=== PATIENT | female | born 1960 | race Caucasian/White ===

== ENCOUNTER → 2016-08-11 | Outpatient (CLI) | payer OTHER ==
[~2016-08-11] MED LIST: CHOL100027 PO; CHOL2000 PO; CONJ.6255 PO; FEXO1TAB46 PO; ONDA4TAB10 SL; TUMERIC CURCUMIN PO; TURM1CAP4 PO
[2016-08-11 09:45] LABS: BASO % 0.3 %; BASO ABS # 0.02 K/uL (0-0.2); COMPLETE YES; HEMATOCRIT 43.6 % (37-47); IG% 0.3 %; LYMPH % 32.2 %; LYMPH ABS # 2.55 K/uL (1.2-3.4); MEAN CELL VOLUME 92.2 fL (80-100); MEAN CORPUSCULAR HEMOGLOBIN 31.1 pg (25-34); MEAN CORPUSCULAR HGB CONC 33.7 g/dl (32-36); MONO % 10.5 %; NEUT % 51.7 %; PLATELET COUNT 279 K/uL (130-400); RED BLOOD COUNT 4.73 M/uL (4.2-5.4); WHITE BLOOD COUNT 7.93 K/uL (4.8-10.8)
[2016-08-11 10:05] LABS: BLOOD UREA NITROGEN 15 mg/dl (7-18); BUN/CREATININE RATIO 17.4 (10-20); CALCIUM 8.8 mg/dl (8.5-10.1); CARBON DIOXIDE 24 mmol/L (21-32); CHLORIDE 107 mmol/L (98-107); CHOLESTEROL 223 mg/dl (0-200); CREATININE 0.89 mg/dl (0.60-1.20); GLUCOSE 95 mg/dl (70-99); POTASSIUM 4.1 mmol/L (3.5-5.1); SODIUM 141 mmol/L (136-145)
[2016-08-11 10:16] LABS: ALB/GLOB RATIO 1.3 (0.9-2); ALKALINE PHOSPHATASE 64 U/L (45-117); ALT/SGPT 21 U/L (12-78); AST/SGOT 13 U/L (15-37); CHOLESTEROL/HDL RATIO 3.5; HDL CHOLESTEROL 64 mg/dl; LDL CHOLESTEROL CALCULATED 133 mg/dl; TRIGLYCERIDES 130 mg/dl (0-150); VERY LOW DENSITY LIPOPROT CALC 26 mg/dl
== END | disposition home or self-care (01) ==
LOC: C.LAB1850 07:38
PROVIDERS: ATTEND Internal Medicine
DX: E53.8 Deficiency of other specified B group vitamins (principal); E55.9 Vitamin D deficiency, unspecified; E78.5 Hyperlipidemia, unspecified; E87.6 Hypokalemia; M19.90 Unspecified osteoarthritis, unspecified site; M85.80 Other specified disorders of bone density and structure, unspecified site

== ENCOUNTER → 2016-09-14 | Outpatient (CLI) | payer OTHER | END | disposition home or self-care (01) | LOC: C.MAMM 11:29 | PROVIDERS: ATTEND Internal Medicine | DX: M85.80 Other specified disorders of bone density and structure, unspecified site (principal) ==

== ENCOUNTER → 2016-09-29 | Outpatient (CLI) | payer OTHER ==
--- NOTE | 2016-09-29 13:32 | MAMMOGRAPHY REPORT ---
BILATERAL DIGITAL SCREENING MAMMOGRAM WITH CAD: 09/29/2016 CLINICAL HISTORY: Routine screening. Patient has no complaints. TECHNIQUE: Current study was also evaluated with a Computer Aided Detection (CAD) system. Bilatera l CC and MLO views were obtained. COMPARISON: Comparison is made to exams dated: 09/17/2015 mammogram, 08/21/2014 mammogram, 12/11/2012 m ammogram, 12/05/2012 mammogram, and 11/02/2009 mammogram - [facility]. BREAST COMPOSITION: The tissue of both breasts is almost entirely fatty. FINDINGS: No suspicious masses, calcifications, or areas of architectural distortion are noted in e ither breast. There has been no significant interval change compared to prior exams. IMPRESSION: ACR BI-RADS CATEGORY 1: NEGATIVE There is no mammographic evidence of malignancy. A 1 year screening mammogram is recommended. The p atient will receive written notification of the results. Approximately 10% of breast cancers are not detected with mammography. A negative mammographic repor t should not delay biopsy if a clinically suggestive mass is present. Katelyn Titus M.D. ah/:09/29/2016 12:05:38 [employer] Supervisor: Nataliya Manzano [facility] letter sent: Normal 1/2 BI-RADS Code: ACR BI-RADS Category 1: Negative
== END | disposition home or self-care (01) ==
LOC: C.MAMM 10:56
PROVIDERS: ATTEND Obstetrics & Gynecology
DX: Z12.31 Encounter for screening mammogram for malignant neoplasm of breast (principal)

== ENCOUNTER → 2016-12-14 | Outpatient (CLI) | payer OTHER | END | disposition home or self-care (01) | LOC: C.PAPS 10:08 | PROVIDERS: ATTEND Physician Assistant | DX: Z12.4 Encounter for screening for malignant neoplasm of cervix (principal) ==

== ENCOUNTER 2017-03-07 20:47 | Emergency (ER) | payer SELFPAY ==
[~2017-03-07] VITALS: Ht 139.7 cm; Wt 46.2 kg
[~2017-03-07 20:47] MED LIST changes: -CHOL2000 PO; -ONDA4TAB10 SL; -TURM1CAP4 PO
[2017-03-07 20:52] VITALS: TEMP 37; Ht 139.7 cm; Wt 46.2 kg
[2017-03-07] MEDS ORDERED: SODIUM CHLORIDE 0.9% 1000ML 1,000 ML IV STA (21:58)
[2017-03-07] MEDS ORDERED: ONDANSETRON INJ 2 MG/ML 2 ML VIAL IV STA (21:58)
[2017-03-07] MEDS ORDERED: DiphenhydrAMINE HCL 50 MG/ML VIAL IV STA (21:58)
[2017-03-07] MEDS ORDERED: DEXAMETHASONE SOD INJ 10 MG/ML VIAL IV ONE (22:00)
[2017-03-07 22:35] LABS: BASO % 0.1 %; BASO ABS # 0.01 K/uL (0-0.2); COMPLETE YES; EOS % 0.1 %; HEMATOCRIT 42.7 % (37-47); IG% 0.4 %; LYMPH % 10.1 %; LYMPH ABS # 1.38 K/uL (1.2-3.4); MEAN CELL VOLUME 91.2 fL (80-100); MEAN CORPUSCULAR HEMOGLOBIN 32.5 pg (25-34); MEAN CORPUSCULAR HGB CONC 35.6 g/dl (32-36); MEAN PLATELET VOLUME 8.7 fL (7.4-10.4); MONO % 4.4 %; NEUT % 84.9 %; PLATELET COUNT 267 K/uL (130-400); RED BLOOD COUNT 4.68 M/uL (4.2-5.4); WHITE BLOOD COUNT 13.63 K/uL (4.8-10.8)
[2017-03-07 22:43] LABS: INR 1.1 (0.9-1.1); PROTHROMBIN TIME (PATIENT) 11.4 SECONDS (9.0-12.0)
[2017-03-07 22:52] LABS: BUN/CREATININE RATIO 15.7 (10-20); CALCIUM 9.3 mg/dl (8.5-10.1); CREATININE 0.9 mg/dl (0.60-1.20); POTASSIUM 3.6 mmol/L (3.5-5.1)
[2017-03-07 22:55] LABS: ALB/GLOB RATIO 1.2 (0.9-2)
[2017-03-07] MEDS ORDERED: OPTIRAY 320 IV PRN (23:30)
[2017-03-07] MEDS ORDERED: TURM1CAP4 PO (23:59)
[2017-03-07] MEDS ORDERED: CHOL2000 PO (23:59)
[2017-03-08 00:04] VITALS: BP 126/84; PULSE 94; O2SAT 96
[2017-03-08] MEDS ORDERED: ONDANSETRON HOME PACK 4MG OD TAB PO ONE (00:45)
[2017-03-08] MEDS ORDERED: ONDA4TAB10 SL (00:46)
--- NOTE | 2017-03-08 00:46 | EMERGENCY ROOM VISIT NOTE ---
History First contact with patient: 21:49 Chief Complaint: HEADACHE Stated Complaint: MIGRAINE,UPSET STOMACH History of Present Illness The patient is a 56 year old female who presents to the Emergency Room with complaints of a headache which began very early this morning. The patient states that she has had a gradually worsening headache with associated vomiting. She took Motrin this morning which gave her some relief and she was able to eat breakfast. She states that she does not have a history of headaches or migraines. She does have headaches occasionally due to stress. She rates her current discomfort a 5-7/10. She denies any associated numbness, weakness or confusion. She denies blurred vision or slurred speech. The patient states that she has had one seizure a few years ago, but no other seizures and denies other neurological history. She has a history of Elliott syndrome. She denies any recent illness, fevers or neck pain/stiffness. Review of Systems A complete 10 point review of systems was reviewed with the patient with pertinent positives and negatives as per history of present illness. All else were negative. Past Medical/Surgical History Medical Problems: (1) Elliott syndrome Surgical Problems: (1) History of colonoscopy Family History FHx: cancer FHx: diabetes FHx: hypertension FHx: lung disease Social History Smoking Status: Former Smoker Alcohol Use: none Marital Status: Housing Status: lives with significant other Occupation Status: unemployed Current/Historical Medications Scheduled Cholecalciferol (Vitamin D3), 1 CAP PO DAILY Estrog Conj/Medryoxyprog Acet (Prempro 0.625MG/2.5MG), 1 TAB PO DAILY Fexofenadine Hcl (Denise), 180 MG PO DAILY Ondasetron Odt (Zofran Odt), 4 MG SL Q6H Turmeric (Curcuma Longa) (Turmeric), 1 CAP PO DAILY Physical Exam Vital Signs Date Time Temp Pulse Resp B/P (MAP) Pulse Ox O2 Delivery O2 Flow Rate FiO2 03/08/17 00:04 94 20 126/84 96 Room Air 03/07/17 22:44 91 03/07/17 22:33 90 20 155/103 98 Room Air 03/07/17 20:52 37.0 93 20 137/88 96 Room Air Physical Exam VITALS: Vitals are noted on the nurse's note and reviewed by myself. Vital signs stable. GENERAL: This is a 56-year-old female, in no acute distress, nondiaphoretic, well-developed well-nourished. SKIN: The skin was without rashes. HEAD: Normocephalic atraumatic. EARS: External auditory canals clear, tympanic membranes pearly montano without erythema or effusion bilaterally. EYES: Pupils equal round and reactive to light and accommodation. Conjunctivae without injection, sclerae without icterus. Extraocular movements intact. NOSE: Patent, turbinates without inflammation or discharge. MOUTH: Mucous membranes moist. Tonsils are not enlarged. Pharynx without erythema or exudate. NECK: Supple without nuchal rigidity. No lymphadenopathy. Negative Kernig and Brudzinski. HEART: Regular rate and rhythm without murmurs gallops or rubs. LUNGS: Clear to auscultation bilaterally without wheezes, rales or rhonchi. MUSCULOSKELETAL: Full range of motion throughout. Strength 5/5 throughout. NEURO: Patient was alert and oriented to person place and time. Normal sensation to light and sharp touch. No focal neurological deficits. Medical Decision & Procedures ER Provider Diagnostic Interpretation: CTA HEAD: No acute vascular abnormality. Radiologist: Vickey Staples MD Laboratory Results 03/07/17 22:15 Red Blood Count 4.68, Mean Corpuscular Volume 91.2, Mean Corpuscular Hemoglobin 32.5, Mean Corpuscular Hemoglobin Concent 35.6, Mean Platelet Volume 8.7, Neutrophils (%) (Auto) 84.9, Lymphocytes (%) (Auto) 10.1, Monocytes (%) (Auto) 4.4, Eosinophils (%) (Auto) 0.1, Basophils (%) (Auto) 0.1, Neutrophils # (Auto) 11.57, Lymphocytes # (Auto) 1.38, Monocytes # (Auto) 0.60, Eosinophils # (Auto) 0.01, Basophils # (Auto) 0.01 03/07/17 22:15 Test 03/07/17 22:15 White Blood Count 13.63 K/uL (4.8-10.8) Red Blood Count 4.68 M/uL (4.2-5.4) Hemoglobin 15.2 g/dL (12.0-16.0) Hematocrit 42.7 % (37-47) Mean Corpuscular Volume 91.2 fL (80-100) Mean Corpuscular Hemoglobin 32.5 pg (25-34) Mean Corpuscular Hemoglobin Concent 35.6 g/dl (32-36) Platelet Count 267 K/uL (130-400) Mean Platelet Volume 8.7 fL (7.4-10.4) Neutrophils (%) (Auto) 84.9 % Lymphocytes (%) (Auto) 10.1 % Monocytes (%) (Auto) 4.4 % Eosinophils (%) (Auto) 0.1 % Basophils (%) (Auto) 0.1 % Neutrophils # (Auto) 11.57 K/uL (1.4-6.5) Lymphocytes # (Auto) 1.38 K/uL (1.2-3.4) Monocytes # (Auto) 0.60 K/uL (0.11-0.59) Eosinophils # (Auto) 0.01 K/uL (0-0.5) Basophils # (Auto) 0.01 K/uL (0-0.2) RDW Standard Deviation 41.2 fL (36.4-46.3) RDW Coefficient of Variation 12.3 % (11.5-14.5) Immature Granulocyte % (Auto) 0.4 % Immature Granulocyte # (Auto) 0.06 K/uL (0.00-0.02) Prothrombin Time 11.4 SECONDS (9.0-12.0) Prothromb Time International Ratio 1.1 (0.9-1.1) Activated Partial Thromboplast Time 25.8 SECONDS (21.0-31.0) Partial Thromboplastin Ratio 1.0 Anion Gap 9.0 mmol/L (3-11) Est Creatinine Clear Calc Drug Dose 43.4 ml/min Estimated GFR () 83.4 Estimated GFR (Non- 72.0 BUN/Creatinine Ratio 15.7 (10-20) Calcium Level 9.3 mg/dl (8.5-10.1) Total Bilirubin 0.5 mg/dl (0.2-1) Aspartate Amino Transf (AST/SGOT) 15 U/L (15-37) Alanine Aminotransferase (ALT/SGPT) 17 U/L (12-78) Alkaline Phosphatase 68 U/L (45-117) Total Protein 7.3 gm/dl (6.4-8.2) Albumin 3.9 gm/dl (3.4-5.0) Globulin 3.4 gm/dl (2.5-4.0) Albumin/Globulin Ratio 1.2 (0.9-2) Medications Administered Medications (Trade) Dose Ordered Sig/Sean Route Start Time Stop Time Status Last Admin Dose Admin Dexamethasone Sodium Phosphate (Decadron Inj) 10 mg NOW ONCE IV 03/07/17 22:00 03/07/17 22:03 DC 03/07/17 22:25 10 MG Ondansetron HCl (Zofran Inj) 4 mg NOW STAT IV 03/07/17 21:58 03/07/17 22:03 DC 03/07/17 22:25 4 MG Sodium Chloride 1,000 ml @ 999 mls/hr Q1H1M STAT IV 03/07/17 21:58 03/07/17 22:58 DC 03/07/17 22:25 999 MLS/HR Diphenhydramine HCl (Benadryl Inj) 25 mg NOW STAT IV 03/07/17 21:58 03/07/17 22:03 DC 03/07/17 22:25 25 MG Ondansetron HCl (ZOFRAN ODT 4MG Home Pack) 1 homepack UD ONCE PO 03/08/17 00:45 03/08/17 00:46 DC 03/08/17 00:45 1 HOMEPACK Medical Decision The differential diagnosis includes acute intracranial bleed, meningitis, encephalitis, mass or mass effect, sinusitis, infection, tumor, headache, temporal arteritis and carbon monoxide exposure, and migraine. The patient is a 56-year-old female who presents today complaining of headache and vomiting. Labs revealed mild leukocytosis, likely secondary to vomiting. Labs were otherwise unremarkable. CTA of the head was performed and showed no acute abnormalities. The patient felt much better after the above treatment. I do not have a significantly high clinical suspicion for subarachnoid hemorrhage. The patient has no neurological findings on examination. I did inform the patient that we were not able to fully rule out a subarachnoid hemorrhage without a lumbar puncture, but she is feeling better and declined at this time. She was encouraged to follow-up closely with her primary care provider and return here if she has worsening of her current condition. Based on the patient's presentation and work up, I feel the patient is stable for outpatient treatment. The patient was educated to return to the emergency department for any worsening of their current condition or new/concerning symptoms. She will follow up with her PCP. The patient's case was reviewed with Dr. Hauser, ED attending physician, who agreed with my assessment and treatment plan. Medication Reconcilliation Current Medication List: was personally reviewed by me Blood Pressure Screening Patient's blood pressure: Elevated blood pressure (improved with headache treatment) Blood pressure disposition: Elevated BP felt to be situational Impression Primary Impression: Headache Departure Information Dispostion Home / Self-Care Condition GOOD Prescriptions Ondasetron Odt (ZOFRAN ODT) 4 Mg Tab 4 MG SL Q6H for Nausea, #10 TAB Prov: Romina Camacho PA-C 03/08/17 Referrals Pro,Todd Sullivan M.D. (PCP) Patient Instructions My [facility] Additional Instructions You have been treated in the Emergency Department for a Headache. For pain control, you can use the following [id number] medicines (if >12 yo): - Regular strength (325mg/tab) Tylenol (acetaminophen) 2 tabs every 4-6 hours as needed. Do not exceed 12 tablets in a 24 hour period. Avoid taking more than 4 grams (4000 mg) of Tylenol per day. This includes any other sources of acetaminophen you may take on a regular basis. - Regular strength (200 mg/tab) Advil (ibuprofen) 1-2 tabs every 4-6 hours as needed. Do not exceed a dose of 3200 mg per day. You should relax in a quiet, dark place for the rest of the day. Avoid any possible triggers including: cigarette smoke, caffeine, nicotine, chocolate, wine, beer, loud noises or music, or bright lights. Follow-up with your primary care provider within one week. Return to the Emergency Department if your current symptoms worsen despite treatment course outlined above, or if you develop any of the following symptoms : intractable pain despite aforementioned treatment course, visual disturbances , loss of vision, unilateral weakness or facial drooping, slurring of speech, loss of coordination, or loss of consciousness.
--- NOTE | 2017-03-08 06:51 | DIAGNOSTIC IMAGING REPORT ---
CT ANGIOGRAPHY HEAD COMBO CT DOSE: 757.37 mGy.cm CLINICAL HISTORY: Severe headache TECHNIQUE: Unenhanced images through the brain were obtained. CT angiography the brain was then performed during intravenous administration of 115 cc of Optiray 320. MIP imaging was performed. A dose lowering technique was utilized adhering to the principles of ALARA. COMPARISON STUDY: Noncontrast head CT dated 06/23/2013 FINDINGS: The noncontrast study, no intra or extra-axial mass lesions are visualized. There is no CT evidence of acute cortical infarction. There is no midline shift. There is no acute hemorrhage. There is no hydrocephalus. Postcontrast images reveal no major intracranial branch occlusions. There are no lesion suspicious for aneurysm. There is no major intracranial stenosis. There is no evidence of dural venous sinus thrombosis. There are no pathologically enhancing masses. IMPRESSION: Unremarkable CT angiography of the brain. Electronically signed by: Ed Felder M.D. 03/08/2017 6:49 AM Dictated Date/Time: 03/08/2017 6:46 AM
== END 2017-03-08 01:04 | disposition home or self-care (01) ==
LOC: C.EDB 20:48 → C.EDA 03-08 01:04
DX: R51 Headache (principal); Q96.9 Turner's syndrome, unspecified; Z79.899 Other long term (current) drug therapy; Z98.890 Other specified postprocedural states; Z87.891 Personal history of nicotine dependence; Z80.9 Family history of malignant neoplasm, unspecified; Z83.3 Family history of diabetes mellitus; Z82.49 Family history of ischemic heart disease and other diseases of the circulatory system

== ENCOUNTER → 2017-09-05 | Outpatient (CLI) | payer OTHER ==
[~2017-09-05] MED LIST changes: -CHOL100027 PO; +CHOL2000 PO; +ONDA4TAB10 SL; -TUMERIC CURCUMIN PO; +TURM1CAP4 PO
== END | disposition home or self-care (01) ==
LOC: C.LABSPEC 14:30
PROVIDERS: ATTEND Physician Assistant
DX: R39.9 Unspecified symptoms and signs involving the genitourinary system (principal)

== ENCOUNTER → 2018-02-01 | Outpatient (CLI) | payer BC ==
[~2018-02-01] MED LIST changes: -ONDA4TAB10 SL
--- NOTE | 2018-02-01 15:40 | MAMMOGRAPHY REPORT ---
BILATERAL DIGITAL SCREENING MAMMOGRAM TOMOSYNTHESIS WITH CAD: 02/01/2018 CLINICAL HISTORY: Routine screening. Patient has no complaints. TECHNIQUE: The study was acquired using full field digital technology and interpreted from soft copy. Breast tomosynthesis in addition to standard 2D mammography was performed. Current study was also ev aluated with a Computer Aided Detection (CAD) system. COMPARISON: Comparison is made to exams dated: 09/29/2016 mammogram, 09/17/2015 mammogram, 08/21/2014 m ammogram, 12/11/2012 mammogram, 12/05/2012 mammogram, and 11/02/2009 mammogram - [facility]ter. BREAST COMPOSITION: The tissue of both breasts is almost entirely fatty. FINDINGS: No suspicious masses, calcifications, or areas of architectural distortion are noted in either breast . There has been no significant interval change compared to prior exams. IMPRESSION: ACR BI-RADS CATEGORY 1: NEGATIVE There is no mammographic evidence of malignancy. A 1 year screening mammogram is recommended.( 019) The patient will receive written notification of the results. Some breast cancers are not detected with mammography. A negative mammographic report should not carolyn y biopsy if a clinically suggestive mass is present. Katelyn Titus M.D. ah/:02/01/2018 10:11:32 Zinc Plate Cutter: RT Gualberto(Marjorie)(M), [facility] letter sent: Normal 1/2 BI-RADS Code: ACR BI-RADS Category 1: Negative
== END | disposition home or self-care (01) ==
LOC: C.MAMM 09:19
PROVIDERS: ATTEND Obstetrics & Gynecology
DX: Z12.31 Encounter for screening mammogram for malignant neoplasm of breast (principal)

== ENCOUNTER → 2018-02-07 | Outpatient (CLI) | payer BC | END | disposition home or self-care (01) | LOC: C.LABSPEC 17:42 | PROVIDERS: ATTEND Internal Medicine | DX: R39.9 Unspecified symptoms and signs involving the genitourinary system (principal) ==

== ENCOUNTER 2018-03-01 20:57 | Emergency (ER) | payer BC ==
[~2018-03-01] VITALS: Ht 139.7 cm; Wt 46.8 kg
[2018-03-01 21:01] VITALS: TEMP 36.9; Ht 139.7 cm; Wt 46.8 kg
--- NOTE | 2018-03-01 22:13 | EMERGENCY ROOM VISIT NOTE ---
ED Visit Note First contact with patient: 21:18 CHIEF COMPLAINT: Puffy eyes HISTORY OF PRESENT ILLNESS: This 57-year-old female patient presents to the emergency department by private vehicle after they developed sudden onset of puffy eyes around 3 PM today. Patient denies any itching or pain, she denies any unusual exposure that she can think of, and she denies any injury to the eyes or face. She states she feels the swelling around her eyes has gotten worse since this afternoon. She denies any rash, itching, or hives. The patient does not have swelling of the rest of the face or lips and denies any sensation of swelling in the throat. The patient has not had shortness of breath. Has not had previous reactions and like this before. The patient has tried no medications for her symptoms. There has been no change in the patient' s soaps, detergents, foods, medications, or other environmental factors. She does note that she picked up some feathers while she was outside and may have touched her face after handling the feathers, she cannot think of anything else unusual today. She denies any vision changes or discharge from the eyes. REVIEW OF SYSTEMS: A complete 10 point review of systems was reviewed with the patient with pertinent positives and negatives as per history of present illness. All else were negative. ALLERGIES: Reviewed in chart, see below MEDICATIONS: Reviewed in chart, see below PMH: Reviewed in chart, see problem list below SOCIAL HISTORY: Lives at home. She denies tobacco use. PHYSICAL EXAM:VITALS: Vitals are noted on the nurse's note and reviewed by myself. Vital signs stable. GENERAL: Pleasant and cooperative, in no acute distress, non-diaphoretic, well- developed well-nourished. THROAT: No pharyngeal edema or injection, no exudates or tonsillar hypertrophy. Airway patent. LUNGS: Clear to auscultation and breath sounds equal, no wheezes, rales, or rhonchi. EYES: PERRLA, EOMI, no discharge or injection. NEUROLOGICAL: Alert and oriented to person, place, and time. Normal sensation to light and sharp touch. HEART: Regular rate without murmurs, ectopy, gallops, or rubs. SKIN: No hives or unusual rash. The lips are not swollen. There is very mild periorbital swelling. EMERGENCY DEPARTMENT COURSE: I examined the patient. There is very mild, barely perceptible periorbital swelling, no eye redness, pain, conjunctival swelling, discharge from the eyes. No evidence of a diffuse allergic reaction. The patient was given p.o. Benadryl 50 mg. She felt improved and felt that the swelling around her eyes had gone down after the Benadryl. She was encouraged to continue Benadryl as needed and to perform cool compresses to the eyes to help with the swelling. She was also encouraged to follow closely with her PCP and given strict return precautions should her symptoms worsen, she verbalized understanding. Patient was discharged home in stable condition and ambulatory. Problem List Medical Problems: (1) Elliott syndrome Status: Chronic Surgical Problems: (1) History of colonoscopy Status: Resolved Current/Historical Medications Scheduled Cholecalciferol (Vitamin D3), 1 CAP PO QAM Estrog Conj/Medryoxyprog Acet (Prempro 0.625MG/2.5MG), 1 TAB PO QAM Fexofenadine Hcl (Denise), 180 MG PO QAM Turmeric (Curcuma Longa) (Turmeric), 1 CAP PO QAM Allergies Coded Allergies: Codeine (Verified Adverse Reaction, Unknown, N/V, 01/16/18) Unclassified Drugs (Verified Adverse Reaction, Unknown, COLD MEDICINES MAKE "ME FEEL WEIRD", 01/16/18) Uncoded Allergies: SEASONAL ALLERGIES (Allergy, Unknown, respiratory sx, 04/09/15) Vital Signs Date Time Temp Pulse Resp B/P (MAP) Pulse Ox O2 Delivery O2 Flow Rate FiO2 03/01/18 22:36 89 18 149/99 97 03/01/18 21:05 96 Room Air 03/01/18 21:01 36.9 94 18 158/101 96 Room Air Medications Administered Medications (Trade) Dose Ordered Sig/Sean Route Start Time Stop Time Status Last Admin Dose Admin Diphenhydramine HCl (Benadryl Cap) 50 mg NOW ONCE PO 03/01/18 21:30 03/01/18 21:31 DC 03/01/18 21:53 50 MG Departure Information Impression Primary Impression: Periorbital swelling Dispostion Home / Self-Care Condition GOOD Referrals Pro,Todd Sullivan M.D. (PCP) Patient Instructions ED Allergic Reaction Local Other, My [facility] Additional Instructions You have been treated in the Emergency Department for swelling around her eyes and a suspected allergic reaction. You have been treated and monitored in the Emergency Department appropriately. You should take Benadryl (diphenhydramine) 25-50 mg orally every 4-6 hours for the next few days until the swelling around her eyes is completely gone. This medication is [id number] and you will NOT need a prescription to purchase this at your local pharmacy. Apply cool compresses to the eyes to help improve swelling and discomfort. As with every Emergency Department visit, you should follow-up with your primary care provider in 2-3 days for reevaluation. Return to the Emergency Department if your current symptoms worsen, or if you develop any of the following symptoms: wheezing, tongue or face swelling, tightness in your throat, shortness of breath, severe dizziness or passing out, painful red eyes, if your eyes swell shut, foul discharge from the eyes, changes in vision, fever/chills, or any other concerns. Work Instructions Return To Work: 2 days
[2018-03-01 22:36] VITALS: BP 149/99; PULSE 89; O2SAT 97
== END 2018-03-01 22:34 | disposition home or self-care (01) ==
LOC: C.EDB 20:58 → C.EDD 22:34
DX: H05.223 Edema of bilateral orbit (principal); Q96.9 Turner's syndrome, unspecified; Z79.899 Other long term (current) drug therapy; Z88.5 Allergy status to narcotic agent